=== PATIENT | female | born 1955 | race Caucasian/White ===

== ENCOUNTER 2023-11-25 00:29 | Emergency (ER) | payer MEDICARE, SELFPAY ==
[2023-11-25 00:31] VITALS: BP 128/90
[2023-11-25 01:02] VITALS: BMI 27.3
[2023-11-25] MEDS: DECADRON 6 MG IV (01:06)
[2023-11-25 01:16] LABS: % Basophils 0.5 % (0-2); % Eosinophils 2.9 % (0-6); % Immature Granulocytes 0.2 % (0-0.5); % Lymphocytes 36.5 % (20.5-51.1); % Monocytes 8.9 % (1.7-9.3); Absolute Eosinophils 0.2 10^3/uL (0-0.7); Absolute Lymphocytes 2.1 10^3/uL (1.2-3.4); Absolute Monocytes 0.5 10^3/uL (0.1-0.6); Hematocrit 39.5 % (37.0-47.0); Hemoglobin 13.6 g/dL (12.0-16.0); Mean Corp Hgb Conc. 34.4 g/dL (33.0-37.0); Mean Corpuscular Hgb 30.5 pg (27.0-31.0); Mean Corpuscular Volume 88.6 fL (81.0-99.0); Mean Platelet Volume 10.2 fL (7.4-10.4); Nucleated Red Blood Cells % 0 %; Platelet Count 220 10^3/uL (130-400); Red Blood Cell Count 4.46 10^6/uL (4.20-5.40); Red Cell Dist. Width 12.5 % (11.5-14.5); White Blood Cell Count 5.9 10^3/uL (4.8-10.8)
--- NOTE | 2023-11-25 01:17 | ED.GENMED ---
History of Present Illness
General
Chief Complaint: Eye Problems
Source: patient
Exam Limitations: none
Time Seen by Provider: 11/25/23 00:34
Travel History
Have you had any contact with someone who has COVID-19?: No
Do you have any symptoms of coronavirus? Fever > 100 degrees, chills, cough, shortness of breath, sore throat, loss of taste or smell, muscle aches, or headache?: No
History of Present Illness
History of Present Illness:
67-year-old female complaining of right eye swelling. Progressive since 5 PM. Some itching to the area. No unusual drainage. No fever or chills. No pain in the eye. No contact lenses. Patient thinks she got bit in this area earlier in the
week.
Past History
Past History
ED Past Medical History: Arrthythmia
ED Past Surgical History: and Orthopedic
Review of Systems
Review of Systems
All Other Systems: Not applicable
Constitutional: Denies fever
Phy Exam
Physical Exam
Physical Exam:
GENERAL: Alert and oriented in no apparent distress
EYE: Left orbit and periorbital area within normal limits. Right orbit with the eyelid swollen shut. Some mild swelling towards the right temporal area. No obvious warmth or erythema. More boggy and chemotic like. No drainage to the eye. No
pain with eye motion.
NECK: Supple, no tender adenopathy
LUNGS: No respiratory distress
NEUROLOGICAL: Alert and oriented , grossly non-focal
SKIN: Warm and dry
PSYCH: Normal and appropriate interaction.
Course
Orders/Labs/Results
Orders:
Orders
11/25/23 00:49
Dexamethasone Sod Phosphate [Decadron] 6 mg IV NOW STA
11/25/23 00:50
CT Orbits With Iv Contrast Urgent
Comment:
Reason For Exam: Right orbital swelling
04/09/24 01:05
Ampicillin/Sulbactam 3 G [Unasyn] 3 gm 0.9% Sodium Chloride 100 ml [Nss] 100 ml IV NOW
11/25/23 01:06
Basic Metabolic Panel Urgent
Complete Blood Count/With Diff Urgent
11/25/23 01:06
11/25/23 01:06
Vital Signs
Initial and Last Documented VS:
Initial Vital Signs
Temp Pulse Resp BP Pulse Ox
97.8 F 118 20 128/90 98
11/25/23 00:31 11/25/23 00:31 11/25/23 00:31 11/25/23 00:31 11/25/23 00:31
Last Documented Vital Signs
Temp Pulse Resp BP Pulse Ox
97.8 F 79 18 111/84 99
11/25/23 00:31 11/25/23 02:44 11/25/23 02:44 11/25/23 02:44 11/25/23 02:44
MDM/Problems Addressed
Differential Diagnosis Includes:
More suspicious of a contact dermatitis. No systemic infectious symptoms. No fever or chills. No pain with eye motion. However labs and CT pending. Will cover with antibiotics and steroids
*Radiology
Radiology exam reviewed: radiology read reviewed (Preorbital swelling. No orbital swelling. No abscess.)
*Pulse Oximetry
Patient hypoxic: no
*Critical Care Note
Total Time (30-74mins, 75-104mins- exclusive of procedures): Not Applicable
Update Note
Update Note:
Clinically I am much more suspicious of a contact dermatitis than a preorbital cellulitis. Patient has no fever no chills no systemic infectious symptoms no white count. Clinically it does not have that beefy red erythema you would expect with
cellulitis. She also has no pain with eye motion no crusting to the eye no drainage. However we will cover her with antibiotics also include steroid coverage to follow-up
ED Attending Note
-
Portions of this chart may have been created with voice recognition software.� Occasional wrong word or��sound alike� substitutions may have occurred due to the inherent limitations of voice recognition software.
Discharge Plan
Departure
Patient Disposition: Home (Routine Discharge)
Date of Disposition: 11/25/23
Time of Disposition: 02:41
Patient with high blood pressure during this ER visit?: No
Discharge Problem:
Orbital swelling, Contact dermatitis vs , PERIORBITAL CELLULITIS
Prescriptions:
New
amoxicillin-pot clavulanate 875-125 mg tablet
1 tab PO BID Qty: 20 0RF
prednisone 10 mg tablet
10 mg PO DAILY Qty: 20 0RF
Rx Instructions:
4 tablets day 1, then 1 less tablet every other day until gone
Referrals:
Josie Masters MD [Family Provider] - Follow up in 2-3 days
Activity Restrictions/Additional Instructions:
Your prescriptions were sent to your pharmacy. Start the antibiotics and steroids in the morning
Close follow-up with your primary physician in the next few days
Try to keep your head elevated especially when you sleep
Return sooner with increased swelling redness pain drainage any fever or systemic symptoms or if symptoms or not improving in 1 to 2 days
Interventions
Interventions:
*Risk Screen - Suicide Last Done: 11/25/23 00:31
*General Assessment Last Done: 11/25/23 02:44
*Neglect/Abuse Screening Last Done: 11/25/23 00:31
ED- Fall Risk Assessment Last Done: 11/25/23 01:21
*ED COVID-19 Vaccine History Last Done: 11/25/23 02:44
*Nursing Disposition Last Done: 11/25/23 02:44
Discharge Date and Time
Discharge Date/Time: 11/25/23 02:53
Print Language: MONEGASQUE
[2023-11-25 01:39] LABS: Blood Urea Nitrogen 16 mg/dl (7-17); Calcium 9.6 mg/dl (8.4-10.2); Carbon Dioxide 28 mmol/L (22-30); Chloride 103 mmol/L (98-107); Estimated Creatinine Clearance 65 ml/min; Glucose 94 mg/dl (70-99); Potassium 3.9 mmol/L (3.5-5.1); Sodium 139 mmol/L (135-145); eGFR > 60.00
[2023-11-25] MEDS: UNASYN IV (01:44)
[2023-11-25 02:44] VITALS: BP 111/84
== END 2023-11-25 02:53 | disposition home or self-care (01) ==
LOC: EMR 00:29
PROVIDERS: EMERGENCY PHYSICIAN Emergency Medicine; FAMILY PHYSICIAN Family Medicine
DX: H57.89 Other specified disorders of eye and adnexa (principal); L25.9 Unspecified contact dermatitis, unspecified cause; L29.9 Pruritus, unspecified; Z88.5 Allergy status to narcotic agent
CPT/HCPCS: 99285; 96365; 96375; 70481; 80048; 85025; Q9967

== ENCOUNTER → 2024-01-06 11:55 | Outpatient (REF) | payer MEDICARE, SELFPAY | LOC: HWWDC 11:55 | PROVIDERS: ATTENDING PHYSICIAN Internal Medicine Rheumatology; FAMILY PHYSICIAN Family Medicine | DX: Z12.31 Encounter for screening mammogram for malignant neoplasm of breast (principal); M81.0 Age-related osteoporosis without current pathological fracture | CPT/HCPCS: 77063; 77067; 77080 ==

== ENCOUNTER → 2024-07-12 14:51 | Outpatient (REF) | payer MEDICARE, SELFPAY | LOC: HWRCS 14:51 | PROVIDERS: ATTENDING PHYSICIAN Internal Medicine Cardiovascular Disease; FAMILY PHYSICIAN Family Medicine | DX: I48.20 Chronic atrial fibrillation, unspecified (principal); I34.0 Nonrheumatic mitral (valve) insufficiency; I07.1 Rheumatic tricuspid insufficiency | CPT/HCPCS: 93306 ==

== ENCOUNTER 2024-11-14 20:39 | Emergency (ER) | payer MEDICARE, SELFPAY ==
[2024-11-14 20:41] VITALS: BP 136/87
[2024-11-14 22:20] VITALS: BP 124/74
--- NOTE | 2024-11-14 22:21 | ED.GENMED ---
History of Present Illness
General
Chief Complaint: DVT/Possible Blood Clot
Source: patient
Exam Limitations: none
Time Seen by Provider: 11/14/24 22:13
History of Present Illness
History of Present Illness:
68yoF with a history of atrial fibrillation on Eliquis presenting for evaluation of left calf pain. Patient traveled to [place], [place] last week and returned home this morning at 5:30 AM. Around 3 PM this afternoon, she started to notice that her
left calf and ankle felt swollen and painful. She was concerned that she had a DVT so came to the ED for evaluation. Pain does seem to be improved over the past few hours. She had some shortness of breath while on the airplane earlier today but
denies any dyspnea currently. She denies any chest pain, dizziness, syncope, fevers.
Past History
Past History
ED Past Medical History: Arrthythmia
ED Past Surgical History: and Orthopedic
Phy Exam
General Physical Exam
General Presentation: well appearing and no apparent distress
General age: appears stated age
General Skin: warm and dry
General Habitus: normal
General Mental: alert
ENT Exam
ENT Exam: normocephalic
Cardiovascular Exam
Cardiovascular Exam: irregularly irregular
Pulmonary Exam
Pulmonary Exam: lungs clear, no respiratory distress, no rales, no crackles, no rhonchi and no wheezing
Neurological Exam
Neurological Exam: alert
[place] Coma Scale
Eye Opening: Spontaneous
Verbal Response: Oriented
Motor Response: Obeys Commands
GCS Total Score: 15
Musculoskeletal Exam
Musculoskeletal Exam: other (L calf: Minor erythema noted to the ankle region without associated warmth. ROM intact. No pitting edema noted. 2+ DP pulse. )
Skin Exam
Skin Exam: normal color and warm/dry
Psychiatric Exam
Psychiatric Exam: normal mood/affect
Course
Orders/Labs/Results
Orders:
Orders
11/14/24 20:45
US Periph Venous LOWER Ext LT Urgent
Comment:
Reason For Exam: swelling, pain, recent travel
11/14/24 22:20
Electrocardiogram (*1) Urgent
Reason for Study: Shortness of Breath
EKG- Treatment ONCE
11/14/24 22:35
Complete Blood Count/With Diff Urgent
Comprehensive Metabolic Panel Urgent
D-Dimer Urgent
Troponin I Urgent
Abnormal Lab Results
11/14/24
22:35
RBC 4.17 L 10^6/uL
(4.20-5.40)
Absolute Monos (auto) 0.7 H 10^3/uL
(0.1-0.6)
Monocytes % 11.5 H %
(1.7-9.3)
Chloride 108 H mmol/L
(98-107)
11/14/24 22:35
11/14/24 22:35
Vital Signs
Initial and Last Documented VS:
Initial Vital Signs
Temp Pulse Resp BP Pulse Ox
98.3 F 122 18 136/87 96
11/14/24 20:41 11/14/24 20:41 11/14/24 20:41 11/14/24 20:41 11/14/24 20:41
Last Documented Vital Signs
Temp Pulse Resp BP Pulse Ox
98.3 F 85 21 119/76 99
11/14/24 20:41 11/15/24 01:30 11/15/24 01:30 11/15/24 01:00 11/15/24 01:51
MDM/Problems Addressed
Differential Diagnosis Includes:
68yoF here with L calf/ankle pain and swelling since this afternoon. Recent 6 hour flight this morning. Had SOB earlier but none currently. Worried about a DVT. Currently on Eliquis for afib. HR 122 in triage. Remainder of vitals are normal. She is
well-appearing in no acute distress. No pitting edema noted on exam. LLE is neurovascularly intact with a palpable DP pulse. Differential diagnosis includes but is not limited to: DVT, dependent edema, venous stasis, no clinical evidence of
cellulitis
Initial ED plan: Check cardiac labs, D-dimer, EKG, and venous duplex.
*EKG
Interpreted by ED Provider?: Yes
EKG Intrepretation Date: 11/15/24
Heart Rate: 94
Rate: normal
Rhythm: a-fib
[place]: normal axis
Interval: normal interval
QRS Pattern: normal QRS
Ischemia: no ischemia
*Critical Care Note
Total Time (30-74mins, 75-104mins- exclusive of procedures): Not Applicable
Update Note
Update Note:
Labs overall unremarkable. EKG shows rate controlled A-fib without ischemic changes and troponin within normal limits. D-dimer is normal. Venous duplex is negative for DVT. Patient is stable for discharge. She was advised to elevate her leg and
wear compression stockings to help with her symptoms. Advised follow-up with PCP. Patient in agreement with plan and was discharged in stable condition.
ED Attending Note
-
Portions of this chart may have been created with voice recognition software.� Occasional wrong word or��sound alike� substitutions may have occurred due to the inherent limitations of voice recognition software.
Discharge Plan
Departure
Patient Disposition: Home (Routine Discharge)
Date of Disposition: 11/15/24
Time of Disposition: 01:32
Patient with high blood pressure during this ER visit?: No
Discharge Problem:
Pain of left calf
Instructions: Muscle, joint, and bone pain - Discharge instructions
Prescriptions:
No Action
amoxicillin-pot clavulanate 875-125 mg tablet
1 tab PO BID Qty: 20 0RF
prednisone 10 mg tablet
10 mg PO DAILY Qty: 20 0RF
Rx Instructions:
4 tablets day 1, then 1 less tablet every other day until gone
Referrals:
Guerrero,Josie R., MD [Family Provider] -
Activity Restrictions/Additional Instructions:
Elevate your leg and wear compression stockings to help with swelling.
Please follow-up with your family doctor. Return to the ER with any new or worsening symptoms.
Interventions
Interventions:
*Risk Screen - Suicide Last Done: 11/14/24 20:45
*General Assessment Last Done: 11/14/24 20:44
*Neglect/Abuse Screening Last Done: 11/14/24 20:45
*ED- Fall Risk Assessment Last Done: 11/14/24 22:21
*ED COVID-19 Vaccine History Last Done: 11/14/24 20:44
*Nursing Disposition Last Done: 11/15/24 01:51
ED- Cardiac Assessment Last Done: 11/14/24 22:21
ED- Pulmonary Assessment Last Done: 11/14/24 22:21
ED-Peripheral Vascular Assessment Last Done: 11/14/24 22:21
ED-Skin Assessment Last Done: 11/14/24 22:21
Discharge Date and Time
Discharge Date/Time: 11/15/24 01:54
Print Language: TURKISH
[2024-11-14 22:28] VITALS: BMI 27.3
[2024-11-14 22:47] LABS: % Basophils 0.5 % (0-2); % Eosinophils 1.6 % (0-6); % Immature Granulocytes 0.2 % (0-0.5); % Lymphocytes 23.2 % (20.5-51.1); % Monocytes 11.5 % (1.7-9.3); Absolute Eosinophils 0.1 10^3/uL (0-0.7); Absolute Lymphocytes 1.4 10^3/uL (1.2-3.4); Absolute Monocytes 0.7 10^3/uL (0.1-0.6); Absolute Neutrophils 3.8 10^3/uL (1.4-6.5); Hematocrit 37.2 % (37.0-47.0); Hemoglobin 12.8 g/dL (12.0-16.0); Mean Corp Hgb Conc. 34.4 g/dL (33.0-37.0); Mean Corpuscular Hgb 30.7 pg (27.0-31.0); Mean Corpuscular Volume 89.2 fL (81.0-99.0); Nucleated Red Blood Cells % 0 %; Platelet Count 202 10^3/uL (130-400); Red Blood Cell Count 4.17 10^6/uL (4.20-5.40); Red Cell Dist. Width 13.4 % (11.5-14.5); White Blood Cell Count 6.1 10^3/uL (4.8-10.8)
[2024-11-14 23:00] VITALS: BP 116/73
[2024-11-14 23:09] LABS: ALT (SGPT) 21 U/L (0-35); AST (SGOT) 24 U/L (14-36); Albumin 3.6 g/dl (3.5-5.0); Alkaline Phosphatase 71 U/L (38-126); Blood Urea Nitrogen 15 mg/dl (7-17); Calcium 9.2 mg/dl (8.4-10.2); Carbon Dioxide 28 mmol/L (22-30); Chloride 108 mmol/L (98-107); Estimated Creatinine Clearance 86 ml/min; Glucose 89 mg/dl (70-99); Potassium 3.8 mmol/L (3.5-5.1); Sodium 142 mmol/L (135-145); Total Bilirubin 1.1 mg/dl (0.2-1.3); Total Protein 6.4 g/dl (6.3-8.2); eGFR > 60.00
[2024-11-14 23:11] LABS: Troponin I < 0.012 ng/ml
[2024-11-15] VITALS: BP 112/81
[2024-11-15 01:00] VITALS: BP 119/76
== END 2024-11-15 01:54 | disposition home or self-care (01) ==
LOC: EMR 20:39
PROVIDERS: Physician Assistant; EMERGENCY PHYSICIAN Emergency Medicine; FAMILY PHYSICIAN Family Medicine
DX: M79.662 Pain in left lower leg (principal); R22.42 Localized swelling, mass and lump, left lower limb; I48.91 Unspecified atrial fibrillation; Z79.01 Long term (current) use of anticoagulants
CPT/HCPCS: 99284; 80053; 84484; 85025; 85379; 93005; 93971

== ENCOUNTER → 2025-01-07 12:48 | Outpatient (REF) | payer MEDICARE, SELFPAY | LOC: HWRAD 12:48 | PROVIDERS: ATTENDING PHYSICIAN Internal Medicine Rheumatology; FAMILY PHYSICIAN Family Medicine | DX: M81.0 Age-related osteoporosis without current pathological fracture (principal) | CPT/HCPCS: 77080 ==

== ENCOUNTER → 2025-02-17 16:37 | Outpatient (REF) | payer MEDICARE, SELFPAY | LOC: HWRAD 16:37 | PROVIDERS: ATTENDING PHYSICIAN Registered Nurse; FAMILY PHYSICIAN Family Medicine | DX: M25.551 Pain in right hip (principal); M25.552 Pain in left hip; M81.0 Age-related osteoporosis without current pathological fracture; Z79.899 Other long term (current) drug therapy | CPT/HCPCS: 73523 ==

== ENCOUNTER → 2025-04-27 04:00 | Outpatient (REF) | payer MEDICARE, SELFPAY | LOC: DHSLP 04:00 | PROVIDERS: ATTENDING PHYSICIAN Internal Medicine; FAMILY PHYSICIAN Family Medicine | DX: G47.33 Obstructive sleep apnea (adult) (pediatric) (principal) | CPT/HCPCS: 95800 ==